=== PATIENT | male | born 1950 | race Hispanic/Latino ===

== ENCOUNTER 2018-01-17 08:28 | Day surgery (SDC) | payer OTHER ==
[~2018-01-17 08:28] MED LIST: ASCO500T10 PO; DARB40DI SQ; FLUD.1 PO; INSREG SQ; INSU100V12 SQ; LACT10SO9 PO; MIDO5 PO; MINE60OI TP; NYST30C TP; PANT40TA25 PO; PRED10TA3 PO; VANC750P8 IV; ZINC220 PO; [UNRECOGNIZED DRUG - CODE] IV
[2018-01-17] MEDS ORDERED: GLUCAGON 1MG KIT 1 MG ML ONE (08:47)
[2018-01-17 08:50] VITALS: BP 102/63
[2018-01-17] MEDS ORDERED: DEXTROSE 50%-WATER 50 ML DISP.SYRIN IV ONE (08:55)
[2018-01-17] MEDS ORDERED: LIDOCAINE HCL 1% MDV 50ML VIAL ONE (10:29)
[2018-01-17] MEDS ORDERED: ISOVUE-300 100 ML VIAL IV ONE (10:29)
[2018-01-17] MEDS ORDERED: LIDOCAINE HCL 2% 20ML ONE (10:30)
[2018-01-17] MEDS ORDERED: SODIUM BICARB 50MEQ 50ML VIAL ONE (10:30)
[2018-01-17 11:27] VITALS: BP 99/63
[2018-01-17 11:37] VITALS: BP 109/66
[2018-01-17 11:52] VITALS: BP 112/71
[2018-01-17 13:06] VITALS: BP 110/72
== END 2018-01-17 12:15 | disposition home or self-care (01) ==
LOC: DAH 08:28
PROVIDERS: ATTEND Internal Medicine Nephrology
DX: Z45.2 Encounter for adjustment and management of vascular access device (principal); M32.14 Glomerular disease in systemic lupus erythematosus; R00.0 Tachycardia, unspecified; D69.6 Thrombocytopenia, unspecified; Z99.2 Dependence on renal dialysis; E11.22 Type 2 diabetes mellitus with diabetic chronic kidney disease; N18.6 End stage renal disease
CPT/HCPCS: 36558; 77001; 82948 ×5; A4606; C1750; C1894; J1610; J1644 ×2; J3490 ×2; J7070; Q9967